=== PATIENT | male | born 2000 | race Native Hawaiian/Other Pacific Islander ===

== ENCOUNTER 2025-05-06 14:05 | Emergency (ER) | payer OTHER, SELFPAY ==
[2025-05-06 14:17] VITALS: BP 136/88; PULSE 60; RESP 18; TEMP 36.6; O2SAT 99; BMI 29.4
--- NOTE | 2025-05-06 14:37 | CRLHL7_ITS ---
For Patients: As a result of the Century Cures Act, medical imaging exams and procedure reports are released immediately into your electronic medical record. You may view this report before your referring provider. If you have questions, please contact your health care provider. INDICATION: Dizziness. TECHNIQUE: Noncontrast CT of the head with multiplanar reconstruction utilizing bone and soft tissue algorithms. COMPARISON: None available. FINDINGS: No acute intracranial hemorrhage. The ballard-white matter interface is preserved. The ventricles are normal in size. No abnormal extra-axial fluid collection is identified. Normal calvarium and skull base. Unremarkable orbits. Partially imaged retention cyst versus mucosal thickening within the right maxillary sinus. IMPRESSION: 1. Unremarkable noncontrast CT of the head. 2. Partially imaged right maxillary mucosal thickening versus postinflammatory retention cyst. Please note that all CT scans at this facility use dose modulation, iterative reconstruction, and/or weight-based dosing when appropriate to reduce radiation dose to as low as reasonably achievable. Dictated by Max Chau MD @ 05/06/2025 3:08:06 PM (Electronically Signed)
--- NOTE | 2025-05-06 14:52 | ED_ITS ---
"HPI - General Adult General Chief complaint: Dizziness/Vertigo Stated complaint: light headed Time Seen by Provider: 05/06/25 14:07 Source: patient Mode of arrival: ambulatory Limitations: no limitations History of Present Illness HPI narrative: 25-year-old male presenting today not feeling well for approximately 3 weeks. He states that 3 weeks ago he had his 1st episode where he was driving in all of a sudden felt very lightheaded. He describes it as the world starts moving in slow motion any feels like he has to closes eyes. He feels very fatigued when this happens it causes him to feel a throbbing sensation in his chest and he feels short of breath when it occurs. It lasts approximately 30 minutes and then for the next 3-4 hours he feels very tired. This is happen approximately once a week for the last 3 weeks. He denies nausea or vomiting. No changes in his vision such as double vision or blurry vision. No ringing in his ears. He does not take any medications and denies any past medical history. Denies any past surgeries. Denies any history of depression or anxiety. Denies any allergies. Patient does have a 2 and a 4-year-old at home. He denies any drug use. He states that he used to smoke but now uses a nicotine patch. He states that he was drinking a lot of energy drinks but stopped doing that in the last couple of weeks but the episodes continue. He states that he does not sleep well at night over the last 3 weeks, wakes up suddenly and frequently throughout the night. Patient states that he does not feel anxiety and he does not feel like he is under any stress. During these episodes he does not have any focal neurologic deficits. He does develop a headache. Related Data Home Medications ?Medication ?Instructions ?Recorded ?Confirmed No Known Home Medications 05/06/2504/15 Allergies Allergy/AdvReac Type Severity Reaction Status Date / Time No Known Drug Allergies Allergy Verified 05/06/25 14:17 Review of Systems Status of ROS: Reports: 10 or more systems reviewed and unremarkable except as noted in History and below [facility] Social History Do you use any of these nicotine containing products: Smokeless Tobacco How often do you have a drink containing alcohol: never AUDIT-C Alcohol total score: 0 Non-prescribed substance use: denies use Exam Narrative: Exam Narrative: Well-nourished well-developed patient in no acute distress. Alert and oriented. Answers questions appropriately. Mood and affect are appropriate. Thoughts are goal oriented and rational. No tangential or magical thinking noted. Patient speaks in full sentences without needing to catch his breath. HEENT: Normocephalic atraumatic. Pupils are equally round reactive to light. Extraocular muscles are intact. Conjunctivae are moist without any icterus noted. Moist mucous membranes. Posterior pharynx is normal. Neck is soft without any lymphadenopathy or thyromegaly. No masses are appreciated. Cardiovascular: Heart is regular rate and rhythm S1 and S2 are present without any murmurs. Lungs: Clear to auscultation bilaterally no wheezes rhonchi or rales are appreciated. Patient takes deep breaths without any discomfort. Abdomen: Soft and nontender nondistended with normal bowel sounds. Extremities: Bilateral lower extremities are without edema. Skin: Well perfused without any obvious rashes. Strength is 5/5 of the upper and lower extremities. Cranial nerves 3-12 are normal. There is no nystagmus either horizontally or vertically. Gait is normal. Const: Vital Signs, click to edit/add: Vital Signs - 24 hr 05/06/25 14:17 Temperature 97.9 F Pulse Rate [Pulse Oximeter] 60 Respiratory Rate 18 Blood Pressure [Ri ght Upper Arm] 136/88 Pulse Oximetry 99 Oxygen Delivery Me thod Room Air Course Course ED Course: Differential diagnosis is quite broad and includes anxiety, cardiac arrhythmia, seizures, narcolepsy, diabetes, migraine with aura. EKG, read by me, shows sinus bradycardia with a pulse of 55. Normal QRS, QTC and IL intervals normal Blood work unremarkable. Head CT unremarkable. Patient remained asymptomatic while he was here. Vital Signs Vital signs: Initial Vital Signs Temperature 97.9 F 05/06/25 14:17 Temperature Source Temporal Artery Scan 05/06/25 14:17 Pulse Rate 60 05/06/25 14:17 Respiratory Rate 18 05/06/25 14:17 Blood Pressure 136/88 05/06/25 14:17 Blood Pressure Mean 104 05/06/25 14:17 Pulse Oximetry 99 05/06/25 14:17 Oxygen Delivery Method Room Air 05/06/25 14:17 Vital Signs Temperature 97.9 F 05/06/25 14:17 Pulse Rate 60 05/06/25 14:17 Respiratory Rate 18 05/06/25 14:17 Blood Pressure 136/88 05/06/25 14:17 Pulse Oximetry 99 05/06/25 14:17 Oxygen Delivery Method Room Air 05/06/25 14:17 Temperature 97.9 F 05/06/25 14:17 Pulse Rate 60 05/06/25 14:17 Respiratory Rate 18 05/06/25 14:17 Blood Pressure 136/88 05/06/25 14:17 Pulse Oximetry 99 05/06/25 14:17 Oxygen Delivery Method Room Air 05/06/25 14:17 Medical Decision Making MDM Narrative Medical decision making narrative: 25-year-old male with episodes of dizziness of unclear etiology. Patient is not a primary care provider and has not seen a physician in quite some time. Recommend establishing care at this time to continue management. Patient may need appointment with Neurology or Cardiology Services as well. Lab Data Lab results reviewed: Yes I reviewed the patient's lab results Labs: Lab Results 05/06/25 Range/Units 14:50 WBC 6.48 (4.50-11.00) K/uL RBC 4.64 (4.30-5.90) m/uL Hgb 13.8 (13.5-17.5) gm/dL Hct 41.8 (37.0-53.0) % MCV 90 (80-100) fL MCH 30 (26-34) pg MCHC 33 (32-36) gm/dL RDW Coeff of Angel 12.1 (11.5-15.5) % Plt Count 222 (140-440) K/uL Neut % (Auto) 53.1 (42.0-72.0) % Lymph % (Auto) 34.4 (20-44) % [place] % (Auto) 8.6 (0.0-11.0) % Eos % (Auto) 2.8 (0.0-7.0) % Baso % (Auto) 0.8 (0.0-3.0) % Neut # (Auto) 3.44 (1.7-7.0) K/uL Lymph # (Auto) 2.23 (0.90-2.90) K/uL [place] # (Auto) 0.60 (0.00-0.90) K/UL Eos # (Auto) 0.18 (0.00-0.50) K/uL Baso # (Auto) 0.05 (0.00-0.30) K/uL Abs Immat Gran (auto) 0.02 (0.00-0.30) K/uL Imm/Tot Granulo (auto) 0.3 % Sodium 137 (135-149) mmol/L Potassium 4.3 (3.6-5.1) mmol/L Chloride 105 (96-114) mmol/L Carbon Dioxide 26 (20-32) mmol/L Anion Gap 6 L (7-15) mEq/L BUN 14 (5-24) mg/dL Creatinine 0.9 (0.5-1.5) mg/dL Estimated Creat Clear 127.65 Estimated GFR 123 ml/min Glucose 99 (60-115) mg/dL Calcium 9.4 (8.4-10.6) mg/dL Total Bilirubin 1.2 (0.1-1.5) mg/dL Direct Bilirubin 0.2 (0.0-0.5) mg/dL AST 35 (12-35) U/L ALT 30 (4-50) U/L Alkaline Phosphatase 66 (40-150) U/L C-Reactive Protein < 0.5 L (0.5-1.0) mg/dL Total Protein 7.7 (6.0-8.3) g/dL Albumin 4.5 (3.3-5.0) g/dL TSH 3.510 (0.270-4.20) uIU/mL Imaging Data CT scan - head: Attestation: I have reviewed the pertinent imaging results. Radiologist's impression: TECHNIQUE: Noncontrast CT of the head with multiplanar reconstruction utilizing bone and soft tissue algorithms. COMPARISON: None available. FINDINGS: No acute intracranial hemorrhage. The ballard-white matter interface is preserved. The ventricles are normal in size. No abnormal extra-axial fluid collection is identified. Normal calvarium and skull base. Unremarkable orbits. Partially imaged retention cyst versus mucosal thickening within the right maxillary sinus. IMPRESSION: 1. Unremarkable noncontrast CT of the head. 2. Partially imaged right maxillary mucosal thickening versus postinflammatory retention cyst. ECG Data Attestation: I personally reviewed and interpreted this ECG as follows: Discharge Plan Discharge Clinical Impression: Dizziness Patient Disposition: Home, Self-Care Condition: Stable Additional Instructions: Recommend use times her with a primary care provider as soon as you can to continue investigations as to why these episodes are happening. The phone number to the [facility] will be given to you today so you can establish care with a primary care doctor. Prescriptions: No Action No Known Home Medications Follow Up/Referrals: Provider,Not a Local [Primary Care Provider, Family Practice] Stand Alone Forms: [employer] | [facility] Info Instructions"
[2025-05-06 14:56] LABS: Hematocrit 41.8 % (37.0-53.0); Hemoglobin* 13.8 gm/dL (13.5-17.5); Immature Granulocytes Abs Auto 0.02 K/uL (0.00-0.30); Immature Granulocytes Pct Auto 0.3 %; Lymphocytes Absolute Auto 2.23 K/uL (0.90-2.90); Mean Corpuscular HGB Conc 33 gm/dL (32-36); Mean Corpuscular Hemoglobin 30 pg (26-34); Mean Corpuscular Volume 90 fL (80-100); RDW Coefficient of Variation % 12.1 % (11.5-15.5); Red Blood Count 4.64 m/uL (4.30-5.90); Slide Review Reflex No; White Blood Count* 6.48 K/uL (4.50-11.00)
[2025-05-06 15:10] LABS: Albumin* 4.5 g/dL (3.3-5.0); Chloride* 105 mmol/L (96-114); Potassium* 4.3 mmol/L (3.6-5.1); Sodium* 137 mmol/L (135-149)
[2025-05-06 15:12] LABS: Blood Urea Nitrogen* 14 mg/dL (5-24); Creatinine* 0.9 mg/dL (0.5-1.5); Est. Creatinine Clearance* 127.65; Estimated Glomerular Filt Rate 123 ml/min
[2025-05-06 15:13] LABS: Alanine Aminotransferase* 30 U/L (4-50); Alkaline Phosphatase* 66 U/L (40-150); Anion Gap 6 mEq/L (7-15); Aspartate Amino Transferase* 35 U/L (12-35); Bilirubin Direct* 0.2 mg/dL (0.0-0.5); Bilirubin Total* 1.2 mg/dL (0.1-1.5); Calcium* 9.4 mg/dL (8.4-10.6); Carbon Dioxide* 26 mmol/L (20-32); Glucose* 99 mg/dL (60-115); Total Protein* 7.7 g/dL (6.0-8.3)
== END 2025-05-06 16:40 | disposition home or self-care (01) ==
PROVIDERS: Emergency Provider Family Medicine
DX: R42 Dizziness and giddiness (principal)
CPT/HCPCS: 36415; 70450; 80048; 80076; 80306; 84443; 85025; 86140; 93005; 99284